=== PATIENT | female | born 1980 | race Caucasian/White ===

== ENCOUNTER 2018-01-22 16:13 | Outpatient (CLI) | payer OTHER | END 2018-01-22 16:14 | disposition home or self-care (01) | LOC: BICMAMMO 16:13 | PROVIDERS: ATTEND Obstetrics & Gynecology | DX: Z12.31 Encounter for screening mammogram for malignant neoplasm of breast (principal) | CPT/HCPCS: 77063; 77067 ==

== ENCOUNTER 2018-07-27 12:01 | Outpatient (CLI) | payer OTHER ==
--- NOTE | 2018-07-27 12:55 | ULT ---
TARGETED LEFT AXILLARY ULTRASOUND: History: Left axillary swelling. Technique: Multiplanar grayscale and color doppler images were obtained in a left axillary ultrasound . FINDINGS: Normal appearing fat is seen. No suspicious mass or shadowing is seen. IMPRESSION: No significant left axillary abnormality. POS: [facility]
== END 2018-07-27 12:02 | disposition home or self-care (01) ==
LOC: BICULT 12:01
PROVIDERS: ATTEND Physician Assistant
DX: R22.9 Localized swelling, mass and lump, unspecified (principal)
CPT/HCPCS: 76999